=== PATIENT | male | born 1980 | race Caucasian/White ===

== ENCOUNTER 2019-10-25 10:39 | Emergency (ER) | payer OTHER ==
[~2019-10-25] VITALS: Ht 177.8 cm; Wt 102.1 kg
--- OUTSIDE RECORDS SUMMARY | ~2019-10-25 | XMS | Encounter Summary ---
Demographics + + + | Address | [address] | | | [place] [address] | + + + | Home Phone | | + + + | Preferred Language | Unknown | + + + | Marital Status | Single | + + + | Episcopalian Affiliation | Unknown | + + + | Race | Unknown | + + + | Ethnic Group | Unknown | + + + Author + + + | Author | [facility] | | | and [place] | + + + | Organization | [facility] | | | and [place] | + + + | Address | Unknown | + + + | Phone | Unavailable | + + + Support + + + + + | Name | Relationship | Address | Phone | + + + + + | Prudencio Hylton | STELLA | [address] | | | | | [place], [place] | | | | | [address] | | + + + + + | Bonnie Hylton | ECON | [address] | | | | | [place], [place] | | | | | [address] | | + + + + + Care Team Providers + +------+ + | Care Independent Contractor Name | Role | Phone | + +------+ + PCP | Unavailable | + +------+ + Encounter Details +--------+ + + + + | Date | Type | Department | Care Team | Description | +--------+ + + + + | 01/18/ | Hospital | [facility] | Carissa Cruz | | | 2012 | Encounter | MED CTR EMERGENCY | DO Toni Rubio | | | | | MCDANIEL [address] | [place], [place] | | | | | [place] | [address] | | | | | [address] | | | | | | [phone] | | | +--------+ + + + + Social History + +-------+ +--------+------+ | Tobacco Use | Types | Packs/Day | Years | Date | | | | | Used | | + +-------+ +--------+------+ | Never Assessed | | | | | + +-------+ +--------+------+ + + + | Sex Assigned at | Date Recorded | | | | + + + | Not on file | | + + + + + + + | Job Start Date | Occupation | Industry | + + + + | Not on file | Not on file | Not on file | + + + + + + + + | Travel History | Travel Start | Travel End | + + + + + + | No recent travel history available. | + + documented as of this encounter Plan of Treatment Not on filedocumented as of this encounter Procedures + +--------+ + + + | Procedure Name | Priori | Date/Time | Associated Diagnosis | Comments | | | ty | | | | + +--------+ + + + | XR LUMBAR SPINE 2 OR | Routin | 01/19/2013 | | Results for this | | 3 VW | e | 9:40 AM | | procedure are in the | | | | PDT | | results section. | + +--------+ + + + documented in this encounter Results XR Lumbar Spine 2 or 3 Vw (01/19/2013 9:40 AM PDT) + + | Specimen | + + | | + + + + + | Narrative | Performed At | + + + | [facility] | [place] | | Department [address] | [facility] | | [ rep ct street1+2] [ rep ct [facility] | | st zip] Signed | - IMAGING | | | | | Patient Name: CATHLEEN HYLTON Physician: | | | LIAN. : 1980 Age: 32 Sex: M Unit #: [id number] | | | Exam Date: 01/18/13 Location: ER | | | Report #: [id number] Page: | | | %(RAD)RES..mtdd.print.filter("pg") of %(RAD) | | | RES..mtdd.print.filter("tpg") | | | | | | Accession Number: [id number] | | | LUMBAR SPINE CLINICAL HISTORY: LOW BACK PAIN. | | | FINDINGS: AP, lateral, and coned-down views of the lumbar | | | spine show 5 lumbar segments. Alignment is normally maintained. | | | Vertebral body heights are normal. Disk interspaces also appear | | | normal. No bony degenerative changes are seen. Adjacent soft | | | tissues are normal. IMPRESSION: 1. NEGATIVE | | | STUDY OF THE LUMBAR SPINE. Dictated Date/Time: | | | 01/19/2013 09:40 Transcribed Date/Time: 01/19/2013 09:44 | | | Patient Service Associate: <<Signature on File>> | | | | | | Pranay Tran MD01/19/13 1320 <Electronically signed by | | | Pranay Tran MD> Pranay Tran MD 01/19/13 | | | 0940 Patient Service Associate: Tipjoy Jqpjmdpmcqojg09/26/13 0944 | | | | | + + + + + + + + | Performing | Address | City/State/Zipcode | Phone Number | | Organization | | | | + + + + + | [facility] | [address] | [place] | [phone] | | [facility] | | [address] | | | - IMAGING | | | | + + + + + documented in this encounter Visit Diagnoses Not on filedocumented in this encounter
--- OUTSIDE RECORDS SUMMARY | ~2019-10-25 | XMS | Encounter Summary ---
Demographics + + + | Address | [address] | | | [place] [address] | + + + | Home Phone | | + + + | Preferred Language | Unknown | + + + | Marital Status | Single | + + + | Presybeterian Affiliation | Unknown | + + + | Race | Unknown | + + + | Ethnic Group | Unknown | + + + Author + + + | Author | [facility] | | | and [place] | + + + | Organization | [facility] | | | and [place] | + + + | Address | Unknown | + + + | Phone | Unavailable | + + + Support + + + + + | Name | Relationship | Address | Phone | + + + + + | Prudencio Raygoza | STELLA | [address] | | | | | [place], [place] | | | | | [address] | | + + + + + | Bonnie Raygoza | ECON | [address] | | | | | [place], [place] | | | | | [address] | | + + + + + Care Team Providers + +------+ + | Care General Lithographic Worker Name | Role | Phone | + +------+ + PCP | Unavailable | + +------+ + Encounter Details +--------+ + + + + | Date | Type | Department | Care Team | Description | +--------+ + + + + | 10/25/ | Hospital | [facility] | Doyle Kamara, | | | 2002 | Encounter | MED CTR LABORATORY | MD [address] | | | | | [address] [place] | [place], [place] | | | | | [place], [place] | [address] | | | | | [address] | | | | | | [phone] | | | +--------+ + + + [...] Not on filedocumented as of this encounter Visit Diagnoses Not on filedocumented in this encounter"
--- OUTSIDE RECORDS SUMMARY | ~2019-10-25 | XMS | Clinical Summary ---
Demographics + + + | Address | [address] | | | [place] [address] | + + + | Home Phone | | + + + | Preferred Language | Unknown | + + + | Marital Status | Single | + + + | Baptism Affiliation | Unknown | + + + [...] [place], [place] | | | | | [address] | | + + + + + | Bonnie Raygoza | ECON | [address] | | | | | [place], [place] | | | | | [address] | | + + + + + Care Team Providers + +------+ + | Care Advertisement Distributor Name | Role | Phone | + [...] Vaccine: Influenza | | | | | (#1) | 9 | | | + + + + [...] +--------+-------+---------+--------+ | [employer] | [facility] | [id number] | 12/26/19 | | | Indemn | [...] | | al/Fam | | 1980 | [phone] | [place] | | | theresa | | | 4 (Home) | [address] | | | | | | [phone] | | | | | | | 2 (Work) | | + +--------+ +--------+ + + Advance Directives + + + + + | Type | Date Recorded | Patient | Explanation | | | | Dyer And Washer | | + + + + + | Power of | | | | | Agricultural Research Technician | | | | + + + + + | Advance | | | | | Directive | | | | + + + + +
--- OUTSIDE RECORDS SUMMARY | ~2019-10-25 | XMS | Encounter Summary ---
Demographics + + + | Address | [address] | | | [place] [address] | + + + | Home Phone | | + + + | Preferred Language | Unknown | + + + | Marital Status | Single | + + + | Gnosticism Affiliation | Unknown | + + + | Race | Unknown | + + + | Ethnic Group | Unknown | + + + Author + + + | Author | [facility] | | | and [place] | + + + | Organization | [facility] | | | [...] [place], [place] | | | | | [address] | | + + + + + | Bonnie Raygoza | ECON | [address] | | | | | [place], [place] | | | | | [address] | | + + + + + Care Team Providers + +------+ + | Care Director Of Convention Services Name | Role | Phone | + +------+ + PCP | Unavailable | + +------+ + Encounter Details +--------+ + + + + | Date | Type | Department | Care Team | Description | +--------+ + + + + | 10/25/ | Hospital | [facility] | Doyle Kamara, | | | 2002 | Encounter | MED CTR LABORATORY | MD [address] | | | | | [address] [place] | [place], [place] | | | | | [place], [place] | [address] | | | | | [address] | | | | | | [phone] | | | +--------+ + + + [...]
--- OUTSIDE RECORDS SUMMARY | ~2019-10-25 | XMS | Encounter Summary ---
Demographics + + + | Address | [address] | | | [place] [address] | + + + | Home Phone | | + + + | Preferred Language | Unknown | + + + | Marital Status | Single | + + + | Confucianist Affiliation | Unknown | + + + | Race | Unknown | + + + | Ethnic Group | Unknown | + + + Author + + + | Author | [facility] | | | and [place] | + + + | Organization | [facility] | | | and [...] [place], [place] | | | | | [address] | | + + + + + | Bonnie Hylton | ECON | [address] | | | | | [place], [place] | | | | | [address] | | + + + + + Care Team Providers + +------+ + | Care Sugar Trucker Name | Role | Phone | + +------+ + PCP | Unavailable | + +------+ + Encounter Details +--------+ + + + + | Date | Type | Department | Care Team | Description | +--------+ + + + + | 01/18/ | Hospital | [facility] | Carissa Cruz | | | 2012 | Encounter | MED CTR EMERGENCY | DO Toni Rubio | | | | | [place] [address] | [place], [place] | | | | | [place] | [address] | | | | | [address] | | | | | | [phone] | | | +--------+ + + + [...] Performed At | + + + | [facility] | [place] | | Department [address] | [facility] | | [ rep ct street1+2] [ rep ct [facility] | | st zip] Signed | - IMAGING | | | | | Patient Name: CATHLEEN HYLTON Physician: | | | LIAN. : 1980 Age: 32 Sex: M Unit #: [id number] | | | Exam Date: 01/18/13 Location: ER | | | Report #: [id number] Page: | | | %(RAD)RES..mtdd.print.filter("pg") of %(RAD) | | | RES..mtdd.print.filter("tpg") | | | | | | Accession Number: [id number] | | | LUMBAR SPINE CLINICAL HISTORY: [...] Transcribed Date/Time: 01/19/2013 09:44 | | | Protective Services Officer: <<Signature on File>> | | | | | | Pranay Tran MD01/19/13 1320 <Electronically signed by | | | Pranay Tran MD> Pranay Tran MD 01/19/13 | | | 0940 Protective Services Officer: [employer] Oeopjmoramndd67/26/13 0944 | | | | | + + + + + + + + | Performing | Address | City/State/Zipcode | Phone Number | | Organization | | | | + + + + + | [facility] | [address] | [place] | [phone] | | [facility] | | [address] | | | - IMAGING | | | | + + + + + documented in this encounter Visit Diagnoses Not on filedocumented in this encounter
--- OUTSIDE RECORDS SUMMARY | ~2019-10-25 | XMS | Encounter Summary ---
Demographics + + + | Address | [address] | | | [place] [address] | + + + | Home Phone | | + + + | Preferred Language | Unknown | + + + | Marital Status | Single | + + + | Gnosticist Affiliation | Unknown | + + + | Race | Unknown | + + + | Ethnic Group | Unknown | + + + Author + + + | Author | [facility] | | | and [place] | + + + | Organization | [facility] | | | and [...] [place], [place] | | | | | [address] | | + + + + + | Bonnie Hylton | ECON | [address] | | | | | [place], [place] | | | | | [address] | | + + + + + Care Team Providers + +------+ + | Care African History Professor Name | Role | Phone | + +------+ + | Prudencio Morocho MD | PCP | | + +------+ + Encounter Details +--------+ + + + + | Date | Type | Department | Care Team | Description | +--------+ + + + + | 07/13/ | Hospital | [facility] | Alisa Ramirez | | | 2012 | Encounter | MED CTR EMERGENCY | Dontrell Paul MD [address] | | | | | CENTER [address] | [facility] | | | | | [place], [place] | [place] [address] | | | | | [address] | [phone] | | | | | [phone] | | | +--------+ + + + [...] Performed At | + + + | [facility] | [place] | | Department [address] [facility], [place] | [facility] | | [ rep ct street1+2] [ rep ct [facility] | | st zip] Signed | - IMAGING | | | | | Patient Name: CATHLEEN HYLTON Physician: | | | SCHR.01 : 1980 Age: 32 Sex: M Unit #: [id number] | | | Exam Date: 07/13/13 Location: ER | | | Report #: [id number] Page: | | | %(RAD)RES..mtdd.print.filter("pg") of %(RAD) | | | RES..mtdd.print.filter("tpg") | | | | | | Accession Number: [id number] | | | CT SCAN OF THE [...] | | PRELIMINARY REPORT WAS SENT BY [employer] AT 7:03 PM ON | | | 07/13/2013. Dictated Date/Time: 07/14/2013 08:10 | | | Transcribed Date/Time: 07/14/2013 08:17 Container Maker: | | | DO <<Signature on File>> | | | Jose | | | MD Blue07/14/13 1034 <Electronically signed by Jose Mcarthur MD> | | | Jose Mcarthur MD 07/14/13809 Container Maker: [employer] | | | Addkjchnnzrrq08/18/13816 Alisa Ramirez MD | | | | | + + + + + + + + | Performing | Address | City/State/Zipcode | Phone Number | | Organization | | | | + + + + + | [facility] | [address] | [place] | [phone] | | [facility] | | [address] | | | - IMAGING | | | | + + + + + documented in this encounter Visit Diagnoses Not on filedocumented in this encounter
--- OUTSIDE RECORDS SUMMARY | ~2019-10-25 | XMS | Encounter Summary ---
Demographics + + + | Address | [address] | | | [place] [address] | + + + | Home Phone | | + + + | Preferred Language | Unknown | + + + | Marital Status | Single | + + + | Congregation Affiliation | Unknown | + + + | Race | Unknown | + + + | Ethnic Group | Unknown | + + + Author + + + | Author | [facility] | | | and [place] | + + + | Organization | [facility] | | | [...] [place], [place] | | | | | [address] | | + + + + + | Bonnie Hylton | ECON | [address] | | | | | [place], [place] | | | | | [address] | | + + + + + Care Team Providers + +------+ + | Care Bee Raiser Name | Role | Phone | + +------+ + | Prudencio Morocho MD | PCP | | + +------+ + Encounter Details +--------+ + + + + | Date | Type | Department | Care Team | Description | +--------+ + + + + | 07/13/ | Hospital | [facility] | Alisa Ramirez | | | 2012 | Encounter | MED CTR EMERGENCY | Dontrell Paul MD [address]34 | | | | | CENTER [address] | [facility] | | | | | [place], [place] | [place] [address] | | | | | [address] | [phone] | | | | | [phone] | | | +--------+ + + + [...] Performed At | + + + | [facility] | [place] | | Department [address] [facility] [address] [place] | [facility] | | [ rep ct street1+2] [ rep ct [facility] | | st zip] Signed | - IMAGING | | | | | Patient Name: CATHLEEN HYLTON Physician: | | | SCHR.01 : 1980 Age: 32 Sex: M Unit #: [id number] | | | Exam Date: 07/13/13 Location: ER | | | Report #: [id number] Page: | | | %(RAD)RES..mtdd.print.filter("pg") of %(RAD) | | | RES..mtdd.print.filter("tpg") | | | | | | Accession Number: [id number] | | | CT SCAN OF THE [...] | | PRELIMINARY REPORT WAS SENT BY [employer] AT 7:03 PM ON | | | 07/13/2013. Dictated Date/Time: 07/14/2013 08:10 | | | Transcribed Date/Time: 07/14/2013 08:17 Materials Planning Manager: | | | DO <<Signature on File>> | | | Jose | | | MD Blue07/14/13 1034 <Electronically signed by Jose Mcarthur MD> | | | Jose Mcarthur MD 07/14/13809 Materials Planning Manager: [employer] | | | Mjvclbafwpwvm21/18/13816 Alisa Ramirez MD | | | | | + + + + + + + + | Performing | Address | City/State/Zipcode | Phone Number | | Organization | | | | + + + + + | [facility] | [address] | [place] | [phone] | | [facility] | | [address] | | | - IMAGING | | | | + + + + + documented in this encounter Visit Diagnoses Not on filedocumented in this encounter
--- OUTSIDE RECORDS SUMMARY | ~2019-10-25 | XMS | Encounter Summary ---
Demographics + + + | Address | [address] | | | [place] [address] | + + + | Home Phone | | + + + | Preferred Language | Unknown | + + + | Marital Status | Single | + + + | Mandaen Affiliation | Unknown | + + + | Race | Unknown | + + + | Ethnic Group | Unknown | + + + Author + + + | Author | [facility] | | | and [place] | + + + | Organization | [facility] | | | [...] [place], [place] | | | | | [address] | | + + + + + | Bonnie Raygoza | ECON | [address] | | | | | [place], [place] | | | | | [address] | | + + + + + Care Team Providers + +------+ + | Care Continuous Process Tanner Rotary Drum Name | Role | Phone | + [...] + + | 04/10/ | Emergency | [facility] | Yefri Rizzo | Abdominal pain, | | 2013 | | MED CTR EMERGENCY | MD Dario [address] | lower, right | | | | CENTER [address] | [address] [facility] | (Primary Dx) | | | | [place], [place] | [place] [address] | | | | | [address] | [phone] | | | | | [phone] | | | +--------+ + + + [...] through Care Everywhere.ABDOMINAL PAIN, POSSIBLE APPENDICITIS [MALE] (ETHIOPIAN)ABDOMINAL PAIN (ETHIOPIAN)documented in this encounter Medications at Time of [...] | + + + + + | [facility] | [address] | [place] | [phone] | | [facility] | | [address] | | | - LABORATORY | | | | + + + + + | [facility] | [address] | [place] | | | [facility] | | [address] | | | - LABORATORY | | [...] ER staff by the | | | [facility] radiologist on April 10, 2014 at [...] the ER staff by the | | [facility]iologist on April 10, 2014 at 0405 hours.Dictated [...] reported to the ER staff by the [facility] | |radiologist on April 10, 2014 at 0405 hours. | | | |Dictated and Signed by: Anam Ruiz MD | | Electronically signed: 04/10/2014 10:30 AM | + + + +---------+ + + | Performing | Address | City/State/Zipcode | Phone Number | | Organization | | | | + +---------+ + + | [facility] | | | [phone] | + +---------+ + + | [facility] | | | [phone] | + +---------+ + + Lipase (04/10/2014 [...] + | [facility] | [address] | [place], [place] | [phone] | | [facility] | | [address] | | | - LABORATORY | | | | + + + + + | [facility] | [address] | [place], [place] | | | [facility] | | [address] | | | - LABORATORY | | [...] 10 | 7 - 18 mg/dL | [place] | | | | | | [facility] | | | | | | MEDICAL | | | | | | CENTER - | | | | | | LABORATORY | | + + + + + + | Creatinine | 0.83 | 0.60 - 1.30 | [place] | | | | | mg/dL | [facility] | | | | | | MEDICAL | | | | | | CENTER - | | | | | | LABORATORY | | + + + + + + | eGFR if not | >60Comment: GLOMERULAR | >=60 | [place] | | | | FILTRATION | mL/min/1.73m2 | [facility] | | | CHADIAN | RATE,ESTIMATED | | MEDICAL | | | | mL/min/1.36a0Ebuw than | | CENTER - | | [...] + | [facility] | [address] | [place] | [phone] | | [facility] | | [address] | | | - LABORATORY | | | | + + + + + | [facility] | [address] | [place], [place] | | | [facility] | | [address] | | | - LABORATORY | | [...] + | [facility] | [address] | [place] | [phone] | | [facility] | | [address] | | | - LABORATORY | | | | + + + + + | [facility] | [address] | [place], [place] | | | [facility] | | [address] | | | - LABORATORY | | [...] | 1.025 | | | | | [place], | | | | | | UA, [...] + + + + + + | Ictotest | | Negative | | | + + + + [...] | | | | | Intravenous, ONCE, 04/10/14 at | | AM PDT | [...]
--- OUTSIDE RECORDS SUMMARY | ~2019-10-25 | XMS | Encounter Summary ---
Demographics + + + | Address | [address] | | | [place] [address] | + + + | Home Phone | | + + + | Preferred Language | Unknown | + + + | Marital Status | Single | + + + | Yarsani Affiliation | Unknown | + + + | Race | Unknown | + + + | Ethnic Group | Unknown | + + + Author + + + | Author | [facility] | | | and [place] | + + + | Organization | [facility] | | | [...] [place], [place] | | | | | [address] | | + + + + + | Bonnie Raygoza | ECON | [address] | | | | | [place], [place] | | | | | [address] | | + + + + + Care Team Providers + +------+ + | Care Sole Painter Name | Role | Phone | + [...] + + | 04/10/ | Emergency | [facility] | Yefri Rizzo | Abdominal pain, | | 2013 | | MED CTR EMERGENCY | MD [address] | lower, right | | | | CENTER [address] | [address] [facility] | (Primary Dx) | | | | [place], [place] | [place] [address] | | | | | [address] | [phone] | | | | | [phone] | | | +--------+ + + + [...] through Care Everywhere.ABDOMINAL PAIN, POSSIBLE APPENDICITIS [MALE] (GEORGIAN)ABDOMINAL PAIN (GEORGIAN)documented in this encounter Medications at Time of [...] + | [facility] | [address] | [place] | [phone] | | [facility] | | [address] | | | - LABORATORY | | | | + + + + + | [facility] | [address] | [place] | | | [facility] | | [address] | | | - LABORATORY | | [...] ER staff by the | | | [facility] radiologist on April 10, 2014 at 0405 [...] reported to the ER staff by the [facility] | |radiologist on April 10, 2014 at 0405 hours. | | | |Dictated and Signed by: Anam Ruiz MD | | Electronically signed: 04/10/2014 10:30 AM | + + + +---------+ + + | Performing | Address | City/State/Zipcode | Phone Number | | Organization | | | | + +---------+ + + | [facility] | | | [phone] | + +---------+ + + | [facility] | | | [phone] | + +---------+ + + Lipase (04/10/2014 [...] + | [facility] | [address] | [place], [place] | [phone] | | [facility] | | [address] | | | - LABORATORY | | | | + + + + + | [facility] | [address] | [place], [place] | | | [facility] | | [address] | | | - LABORATORY | | [...] 10 | 7 - 18 mg/dL | [place] | | | | | | [facility] | | | | | | MEDICAL | | | | | | CENTER - | | | | | | LABORATORY | | + + + + + + | Creatinine | 0.83 | 0.60 - 1.30 | [place] | | | | | mg/dL | [facility] | | | | | | MEDICAL | | | | | | CENTER - | | | | | | LABORATORY | | + + + + + + | eGFR if not | >60Comment: GLOMERULAR | >=60 | [place] | | | | FILTRATION | mL/min/1.73m2 | [facility] | | | [place] | RATE,ESTIMATED | | MEDICAL | | | | mL/min/1.77d9Voia than | | CENTER - | | [...] + | [facility] | [address] | [place] | [phone] | | [facility] | | [address] | | | - LABORATORY | | | | + + + + + | [facility] | [address] | [place], [place] | | | [facility] | | [address] | | | - LABORATORY | | [...] + | [facility] | [address] | [place] | [phone] | | [facility] | | [address] | | | - LABORATORY | | | | + + + + + | [facility] | [address] | [place], [place] | | | [facility] | | [address] | | | - LABORATORY | | [...] | 1.025 | | | | | [place], | | | | | | UA, [...]
--- OUTSIDE RECORDS SUMMARY | ~2019-10-25 | XMS | Clinical Summary ---
Demographics + + + | Address | [address] | | | [place] [address] | + + + | Home Phone | | + + + | Preferred Language | Unknown | + + + | Marital Status | Single | + + + | Judaism Affiliation | Unknown | + + + | Race | Unknown | + + + | Ethnic Group | Unknown | + + + Author + + + | Author | [facility] | | | and [place] | + + + | Organization | [facility] | | | and [...] [place], [place] | | | | | [address] | | + + + + + | Bonnie Raygoza | ECON | [address] | | | | | [place], [place] | | | | | [address] | | + + + + + Care Team Providers + +------+ + | Care Cuff Slitter Name | Role | Phone | + [...] +--------+-------+---------+--------+ | [employer] | [employer] | [id number] | 12/26/19 | | | Indemn | [...] | | al/Fam | | 1980 | [phone] | [place] | | | [place] | | | 4 (Home) | [address] | | | | | | [phone] | | | | | | | 2 (Work) | | + +--------+ +--------+ + + Advance Directives + + + + + | Type | Date Recorded | Patient | Explanation | | | | Surgical Product Sales Consultant | | + + + + + | Power of | | | | | Watch Dial Stoner | | | | + + + + + | Advance | | | | | Directive | | | | + + + + +
[~2019-10-25 10:39] MED LIST: IMITREX5 MG NAS
[2019-10-25] MEDS ORDERED: IMITREX50 MG PO (12:13)
[2019-10-25] MEDS ORDERED: REGLAN10 MG PO (12:13)
[2019-10-25] MEDS ORDERED: ONDANSETRON ODT8 MG PO (12:13)
== END 2019-10-25 12:07 | disposition home or self-care (01) ==
LOC: ED 10:39
DX: G43.909 Migraine, unspecified, not intractable, without status migrainosus (principal); G47.30 Sleep apnea, unspecified; Z99.89 Dependence on other enabling machines and devices; Z87.891 Personal history of nicotine dependence; Z88.5 Allergy status to narcotic agent
CPT/HCPCS: 96372; 99283; J3030

== ENCOUNTER 2020-03-29 10:32 | Emergency (ER) | payer OTHER ==
[~2020-03-29] VITALS: Ht 177.8 cm; Wt 95.2 kg
--- OUTSIDE RECORDS SUMMARY | ~2020-03-29 | XMS | Encounter Summary ---
Demographics + + + | Address | [address] | | | [place] [address] | + + + | Home Phone | | + + + | Preferred Language | Unknown | + + + | Marital Status | Single | + + + | Catholic Affiliation | Unknown | + + + | Race | Unknown | + + + | Ethnic Group | Unknown | + + + Author + + + | Author | [facility] | | | and [place] | + + + | Organization | [facility] | | | and [...] [place], [place] | | | | | [address] | | + + + + + | Bonnie Hylton | ECON | [address] | | | | | [place], [place] | | | | | [address] | | + + + + + Care Team Providers + +------+ + | Care Hooker Off Name | Role | Phone | + +------+ + PCP | Unavailable | + +------+ + Encounter Details +--------+ + + + + | Date | Type | Department | Care Team | Description | +--------+ + + + + | 01/18/ | Hospital | [facility] | Carissa Cruz | | | 2012 | Encounter | MED CTR EMERGENCY | DO Toni Rubio | | | | | [place] [address] | [place], [place] | | | | | [place] | [address] | | | | | [address] | | | | | | [phone] | | | +--------+ + + + [...] Performed At | + + + | [facility] | [place] | | Department [address] | [facility] | | [ rep [address]] [ rep ct [facility] | | st zip] Signed | - IMAGING | | | | | Patient Name: CATHLEEN HYLTON Physician: | | | LIAN. : 1980 Age: 32 Sex: M Unit #: [id number] | | | Exam Date: 01/18/13 Location: ER | | | Report #: [id number] Page: | | | %(RAD)RES..mtdd.print.filter("pg") of %(RAD) | | | RES..mtdd.print.filter("tpg") | | | | | | Accession Number: [id number] | | | LUMBAR SPINE CLINICAL HISTORY: [...] Transcribed Date/Time: 01/19/2013 09:44 | | | Nuisance Animal Damage Control Agent: <<Signature on File>> | | | | | | Pranay Tran MD01/19/13 1320 <Electronically signed by | | | Pranay Tran MD> Pranay Tran MD 01/19/13 | | | 0940 Nuisance Animal Damage Control Agent: dax Asparna Wwkarbhlxagvh92/26/13 0944 | | | | | + + + + + + + + | Performing | Address | City/State/Zipcode | Phone Number | | Organization | | | | + + + + + | [facility] | [address] | [place] | [phone] | | [facility] | | [address] | | | - IMAGING | | | | + + + + + documented in this encounter Visit Diagnoses Not on filedocumented in this encounter
--- OUTSIDE RECORDS SUMMARY | ~2020-03-29 | XMS | Clinical Summary ---
Demographics + + + | Address | [address] | | | [place] [address] | + + + | Home Phone | | + + + | Preferred Language | Unknown | + + + | Marital Status | Single | + + + | Mormonism Affiliation | Unknown | + + + | Race | Unknown | + + + | Ethnic Group | Unknown | + + + Author + + + | Author | [facility] | | | and [place] | + + + | Organization | [facility] | | | and [place] | + + + | Address | Unknown | + + + | Phone | Unavailable | + + + Support + + + + + | Name | Relationship | Address | Phone | + + + + + | Prudencio Raygoza | STELLA | [address] | | | | | [place], [place] | | | | | [address] | | + + + + + | Bonnie Raygoza | ECON | [address] | | | | | [place], [place] | | | | | [address] | | + + + + + Care Team Providers + +------+ + | Care Rails Developer Name | Role | Phone | + +------+ + | Prudencio Morocho MD | PCP | | + +------+ + Allergies + + + + + + | Active Allergy | Reactions | Severity | Noted | Comments | | | | | Date | | + + + + + + | Oxycodone | Itching | | 04/10/20 | | | | | | 14 | | + + + + + + Medications + + + +---------+------+------+-------+ | Medication | Sig | Dispensed | Refills | Star | End | Statu | | | | | | t | Date | s | | | | | | Date | | | + + + +---------+------+------+-------+ | | Take 1 tablet by | | 0 | | | Activ | | amoxicillin-clavulan | mouth 2 times daily. | | | | | e | | ate (AUGMENTIN) | | | | | | | | 875-125 mg per | | | | | | | | tablet | | | | | | | + + + +---------+------+------+-------+ | | Take 1 tablet by | 15 | 0 | 06/1 | | Activ | | HYDROcodone-acetamin | mouth every 6 hours | tablet | | 5/20 | | e | | ophen (NORCO) 5-325 | as needed for Pain. | | | 14 | | | | mg per tablet | | | | | | | + + + +---------+------+------+-------+ Active Problems Not on file Social History + +-------+ +--------+------+ | Tobacco Use | Types | Packs/Day | Years | Date | | | | | Used | | + +-------+ +--------+------+ | Never Assessed | | | | | + +-------+ +--------+------+ + + +---------+ + | Alcohol Use | Drinks/Week | oz/Week | Comments | + + +---------+ + | Yes | 10 Cans of beer | 10.0 | | + + +---------+ + + + + | Sex Assigned at [...] recent travel history available. | + + Last Filed Vital Signs + + + + + | Vital Sign | Reading | Time Taken | Comments | + + + + + | Blood Pressure | 128/78 | 04/10/2014 7:14 AM | | | | | PDT | | + + + + + | Pulse | 62 | 04/10/2014 7:14 AM | | | | | PDT | | + + + + + | Temperature | 36.9 C (98.4 F) | 04/10/2014 7:14 AM | | | | | PDT | | + + + + + | Respiratory Rate | 14 | 04/10/2014 7:14 AM | | | | | PDT | | + + + + + | Oxygen Saturation | 97% | 04/10/2014 7:14 AM | | | | | PDT | | + + + + + | Inhaled Oxygen | - | - | | | Concentration | | | | + + + + + | Weight | 95.3 kg (210 lb) | 04/10/2014 1:45 AM | | | | | PDT | | + + + + + | Height | 177.8 cm (5' 10") | 04/10/2014 1:45 AM | | | | | PDT | | + + + + + | Body Mass Index | 30.13 | 04/10/2014 1:45 AM | | | | | PDT | | + + + + + Plan of Treatment + + + + + | Health Maintenance | Due Date | Last Done | Comments | + + + + + | Vaccine: | | | | | Dtap/Tdap/Td (1 - | 2 | | | | Tdap) | | | | + + + + + | Vaccine: Influenza | | | | | (Season Ended) | 0 | | | + + + + + Results Not on filefrom Last 3 Months Insurance + +--------+ +--------+-------+---------+--------+ | Payer | Benefi | Subscriber | Effect | Phone | Address | Type | | | t Plan | ID | kyra | | | | | | / | | Dates | | | | | | Group | | | | | | + +--------+ +--------+-------+---------+--------+ | [employer] | [employer] | [id number] | 12/26/19 | | | Indemn | | | NS | | 13-Pre | | | ity | | | [place] | | [place] | | | | | | [place] | | | | [place] | | | | | | + +--------+ +--------+-------+---------+--------+ + +--------+ +--------+ + + | Guarantor Name | Accoun | Relation to | Date | Phone | Billing Address | | | t Type | Patient | of | | | | | | | | | | + +--------+ +--------+ + + | Oneal Raygoza | Person | Self [birth year] | [address] | | | al/Fam | | 1980 | [phone] | [place] | | | [place] | | | 4 (Home) | [address] | | | | | | [phone] | | | | | | | 2 (Work) | | + +--------+ +--------+ + + Advance Directives + + + + + | Type | Date Recorded | Patient | Explanation | | | | Squash Centre Manager | | + + + + + | Power of | | | | | Systems Programmer Analyst | | | | + + + + + | Advance | | | | | Directive | | | | + + + + +
--- OUTSIDE RECORDS SUMMARY | ~2020-03-29 | XMS | Encounter Summary ---
Demographics + + + | Address | [address] | | | [place] [address] | + + + | Home Phone | | + + + | Preferred Language | Unknown | + + + | Marital Status | Single | + + + | Zoroastrian Affiliation | Unknown | + + + | Race | Unknown | + + + | Ethnic Group | Unknown | + + + Author + + + | Author | [facility] | | | and [place] | + + + | Organization | [facility] | | | and [...] [place], [place] | | | | | [address] | | + + + + + | Bonnie Raygoza | ECON | [address] | | | | | [place], [place] | | | | | [address] | | + + + + + Care Team Providers + +------+ + | Care Bolter Helper Name | Role | Phone | + +------+ + PCP | Unavailable | + +------+ + Encounter Details +--------+ + + + + | Date | Type | Department | Care Team | Description | +--------+ + + + + | 10/25/ | Hospital | [facility] | Doyle Kamara, | | | 2002 | Encounter | MED CTR LABORATORY | MD [address] | | | | | [address] [place] | [place], [place] | | | | | [place], [place] | [address] | | | | | [address] | | | | | | [phone] | | | +--------+ + + + [...]
--- OUTSIDE RECORDS SUMMARY | ~2020-03-29 | XMS | Encounter Summary ---
Demographics + + + | Address | [address] | | | [place] [address] | + + + | Home Phone | | + + + | Preferred Language | Unknown | + + + | Marital Status | Single | + + + | Religion Affiliation | Unknown | + + + | Race | Unknown | + + + | Ethnic Group | Unknown | + + + Author + + + | Author | [facility] | | | and [place] | + + + | Organization | [facility] | | | and [place] | + + + | Address | Unknown | + + + | Phone | Unavailable | + + + Support + + + + + | Name | Relationship | Address | Phone | + + + + + | Prudencio Hylton | STELLA | [address] | | | | | [place], [place] | | | | | [address] | | + + + + + | Bonnie Hylton | ECON | [address] | | | | | [place], [place] | | | | | [address] | | + + + + + Care Team Providers + +------+ + | Care Patrol Officer Name | Role | Phone | + +------+ + | Prudencio Morocho MD | PCP | | + +------+ + Encounter Details +--------+ + + + + | Date | Type | Department | Care Team | Description | +--------+ + + + + | 07/13/ | Hospital | [facility] | Alisa Ramirez | | | 2012 | Encounter | MED CTR EMERGENCY | MD [address] | | | | | CENTER [address] | [facility], | | | | | [place], [place] | [place] [address] | | | | | [address] | [phone] | | | | | [phone] | | | +--------+ + + + [...] | + +--------+ + + + | CT SINUS WO CONTRAST | Routin | 07/14/2013 | | Results for this | | LIMITED | e | 8:10 AM | | procedure are in the | | | | PDT | | results section. | + +--------+ + + + documented in this encounter Results CT Sinus WO Contrast Limited (07/14/2013 8:10 AM PDT) + + | Specimen | + + | | + + + + + | Narrative | Performed At | + + + | [facility] | [place] | | Department [address] [facility] [address] [place] | [facility] | | [ rep ct [address]] [ rep [facility] | | st zip] Signed | - IMAGING | | | | | Patient Name: CATHLEEN HYLTON Physician: | | | SCHR.01 : 1980 Age: 32 Sex: M Unit #: [id number] | | | Exam Date: 07/13/13 Location: ER | | | Report #: [id number] Page: | | | %(RAD)RES..mtdd.print.filter("pg") of %(RAD) | | | RES..mtdd.print.filter("tpg") | | | | | | Accession Number: [id number] | | | CT SCAN OF THE SINUSES CLINICAL HISTORY: LEFT MAXILLA | | | EROSION. COMPARISON: None. PROTOCOL: | | | Thin-section axial CT images of the paranasal sinuses with | | | reconstruction views. FINDINGS: Limited evaluation of | | | the brain demonstrates no acute findings. The right orbit is | | | normal. There is an old mildly displaced fracture of the left | | | lamina papyracea with herniation of a small amount of intraorbital | | | fat. There is a periapical abscess with erosion involving | | | the more anterior left maxillary molar that extends into the left | | | maxillary sinus floor. The floor of the left maxillary sinus has | | | nearly completely eroded with only thin strands of bone remaining. | | | Moderate mucosal thickening is observed of the left maxillary | | | sinus with a small anterior mucous retention cyst and a moderate-sized | | | posterior mucous retention cyst. There is a small mucous | | | retention cyst in the superior aspect of the right maxillary sinus. | | | Mild mucosal thickening is observed of the ethmoid sinuses. | | | Minimal mucosal thickening is present in the left frontal sinus | | | and the left sphenoid sinus. There has been previous partial | | | ethmoidectomies and antrectomies. The antrectomy sites are patent. | | | Visualized mastoids are clear. Visualized calvarium and skull | | | base structures are otherwise unremarkable. IMPRESSION: | | | 1. PERIAPICAL ABSCESS INVOLVING ANTERIOR LEFT MAXILLARY MOLAR | | | WITH EROSION OF THE LEFT MAXILLARY SINUS FLOOR. 2. | | | MODERATE LEFT MAXILLARY CHRONIC SINUSITIS, MILD CHRONIC SINUSITIS IN | | | OTHER REGIONS DESCRIBED ABOVE. 3. PREVIOUS | | | BILATERAL ANTRECTOMIES AND ETHMOIDECTOMIES. 4. OLD | | | MILDLY DISPLACED FRACTURE OF LEFT LAMINA PAPYRACEA WITH MILD | | | HERNIATION OF LEFT INTRAORBITAL FAT. COMMENT: A | | | PRELIMINARY REPORT WAS SENT BY [employer] AT 7:03 PM ON | | | 07/13/2013. Dictated Date/Time: 07/14/2013 08:10 | | | Transcribed Date/Time: 07/14/2013 08:17 Pulp Mill Operator: | | | DO <<Signature on File>> | | | Jose | | | MD Blue07/14/13 1034 <Electronically signed by Jose Mcarthur MD> | | | Jose Mcarthur MD 07/14/13809 Pulp Mill Operator: Tracy | | | [id number] Alisa Ramirez MD | | | | | + + + + + + + + | Performing | Address | City/State/Zipcode | Phone Number | | Organization | | | | + + + + + | [facility] | [address] | [place] | [phone] | | [facility] | | [address] | | | - IMAGING | | | | + + + + + documented in this encounter Visit Diagnoses Not on filedocumented in this encounter
--- OUTSIDE RECORDS SUMMARY | ~2020-03-29 | XMS | Encounter Summary ---
Demographics + + + | Address | [address] | | | [place] [address] | + + + | Home Phone | | + + + | Preferred Language | Unknown | + + + | Marital Status | Single | + + + | Confucianism Affiliation | Unknown | + + + | Race | Unknown | + + + | Ethnic Group | Unknown | + + + Author + + + | Author | [facility] | | | and [place] | + + + | Organization | [facility] | | | and [...] [place], [place] | | | | | [address] | | + + + + + | Bonnie Raygoza | ECON | [address] | | | | | [place], [place] | | | | | [address] | | + + + + + Care Team Providers + +------+ + | Care Veneer Manufacturer Name | Role | Phone | + +------+ + | Prudencio Morocho MD | PCP | | + +------+ + Reason for Visit + + + | Reason | Comments | + + + | Flank Pain | | + + + Encounter Details +--------+ + + + + | Date | Type | Department | Care Team | Description | +--------+ + + + + | 04/10/ | Emergency | [facility] | Yefri Rizzo | Abdominal pain, | | 2013 | | [facility] | MD Dario [address] | lower, right | | | | CENTER [address] | [address] [facility] | (Primary Dx) | | | | [place], [place] | [place] [address] | | | | | [address] | [phone] | | | | | [phone] | | | +--------+ + + + [...] + + documented as of this encounter Last Filed Vital Signs + + + [...] + + + documented in this encounter Discharge Instructions Instructions Darryl Sainz RN - 04/10/2014Return for worsening or severe abdominal pain, nausea, vomiting, fevers or any other worsening symptoms. Follow-up with your physic marilou or clinic for continued care. There is still a possibility of early appendicitis, so if you do not feel right within 12 h ours please return for recheck. AttachmentsThe following attachments cannot be sent through Care Everywhere.ABDOMINAL PAIN, POSSIBLE APPENDICITIS [MALE] (LIBYAN)ABDOMINAL PAIN (LIBYAN)documented in this encounter Medications at Time of Discharge + + + +---------+ + + | Medication | Sig | Dispensed | Refills | Start | End Date | | | | | | Date | | + + + +---------+ + + | | Take 1 tablet by | | 0 | | | | amoxicillin-clavulan | mouth 2 times daily. | | | | | | ate (AUGMENTIN) | | | | | | | 875-125 mg per | | | | | | | tablet | | | | | | + + + +---------+ + + | | Take 1 tablet by | 15 | 0 | 06/15/20 | | | HYDROcodone-acetamin | mouth every 6 hours | tablet | | 14 | | | ophen (NORCO) 5-325 | as needed for Pain. | | | | | | mg per tablet | | | | | | + + + +---------+ + + | ondansetron | Take 1 tablet by | 15 | 0 | 06/15/20 | | | (ZOFRAN ODT) 4 mg | mouth every 6 hours | tablet | | 14 | 4 | | disintegrating | as needed for Nausea | | | | | | tablet | for up to 7 days. | | | | | + + + +---------+ + + documented as of this encounter Plan of Treatment Not on filedocumented as of this encounter Procedures + +--------+ + + + | Procedure Name | Priori | Date/Time | Associated Diagnosis | Comments | | | ty | | | | + +--------+ + + + | CBC W/AUTO | STAT | 04/10/2014 | | Results for this | | DIFFERENTIAL | | 6:27 AM | | procedure are in the | | | | PDT | | results section. | + +--------+ + + + | CT ABDOMEN PELVIS W | STAT | 04/10/2014 | | Results for this | | CONTRAST | | 2:38 AM | | procedure are in the | | | | PDT | | results section. | + +--------+ + + + | CBC NO DIFFERENTIAL | STAT | 04/10/2014 | | Results for this | | | | 2:30 AM | | procedure are in the | | | | PDT | | results section. | + +--------+ + + + | LIPASE | STAT | 04/10/2014 | | Results for this | | | | 2:30 AM | | procedure are in the | | | | PDT | | results section. | + +--------+ + + + | COMPREHENSIVE | STAT | 04/10/2014 | | Results for this | | METABOLIC PANEL | | 2:30 AM | | procedure are in the | | | | PDT | | results section. | + +--------+ + + + | POCT URINALYSIS, | STAT | 04/10/2014 | | Results for this | | AUTO WITH CONF | | 2:00 AM | | procedure are in the | | | | PDT | | results section. | + +--------+ + + + documented in this encounter Results CBC w/ Auto Differential (04/10/2014 6:27 AM PDT) + +-------+ + + + | Component | Value | Ref Range | Performed | Pathologist | | | | | At | Signature | + +-------+ + + + | WBC | 7.8 | 4.0 - 11.0 K/uL | [facility] | | | | | [facility] | | | | | | [facility] | | | | [facility] - | | | | | | LABORATORY | | + +-------+ + + + | RBC | 4.74 | 4.30 - 5.70 | [facility] | | | | | M/uL | [facility] | | | | | | [facility] | | | | | | C[facility] - | | | | | | LABORATORY | | + +-------+ + + + | Hemoglobin | 14.4 | 13.5 - 18.0 | [facility] | | | | | g/dL | [facility] | | | | | | [facility] | | | | | | [facility] - | | | | | | LABORATORY | | + +-------+ + + + | Hematocrit | 41.0 | 40.0 - 51.0 % | [facility] | | | | | | [facility] | | | | | | [facility] | | | | | | [facility] - | | | | | | LABORATORY | | + +-------+ + + + | MCV | 86.3 | 83.0 - 101.0 fL | [facility] | | | | | | [facility] | | | | | | [facility] | | | | | | [facility] - | | | | | | LABORATORY | | + +-------+ + + + | MCH | 30.3 | 28.0 - 35.0 pg | [facility] | | | | | | [facility] | | | | | | [facility] | | | | | | [facility] - | | | | | | LABORATORY | | + +-------+ + + + | MCHC | 35.1 | 32.0 - 36.0 | [facility] | | | | | g/dL | [facility] | | | | | | [facility] | | | | | | CENTER - | | | | | | LABORATORY | | + +-------+ + + + | RDW-CV | 13.0 | <15.0 % | [facility] | | | | | | [facility] | | | | | | [facility] | | | | | | [facility] - | | | | | | LABORATORY | | + +-------+ + + + | Platelet | 220 | 140 - 440 K/uL | [facility] | | | Count | | | [facility] | | | | | | [facility] | | | | | | [facility] - | | | | | | LABORATORY | | + +-------+ + + + | MPV | 6.6 | fL | [facility] | | | | | | [facility] | | | | | | [facility] | | | | | | [facility] - | | | | | | LABORATORY | | + +-------+ + + + | % | 55.8 | 45.0 - 82.0 % | [facility] | | | Neutrophils | | | [facility] | | | | | | [facility] | | | | | | CENTER - | | | | | | LABORATORY | | + +-------+ + + + | % | 34.8 | 20.0 - 45.0 % | [facility] | | | Lymphocytes | | | [facility] | | | | | | [facility] | | | | | | [facility] - | | | | | | LABORATORY | | + +-------+ + + + | % Monocytes | 6.7 | 4.0 - 12.0 % | [facility] | | | | | | [facility] | | | | | | [facility] | | | | | | [facility] - | | | | | | LABORATORY | | + +-------+ + + + | % | 2.1 | 0.0 - 5.0 % | [facility] | | | Eosinophils | | | [facility] | | | | | | MEDICAL | | | | | | CENTER - | | | | | | LABORATORY | | + +-------+ + + + | % Basophils | 0.6 | 0.0 - 1.0 % | [facility] | | | | | | [facility] | | | | | | [facility] | | | | | | [facility] - | | | | | | LABORATORY | | + +-------+ + + + | Absolute | 4.30 | 1.80 - 8.50 | [facility] | | | Neutrophils | | K/uL | [facility] | | | | | | MED[facility] | | | | | | [facility] - | | | | | | LABORATORY | | + +-------+ + + + | Absolute | 2.70 | 0.60 - 3.20 | [facility] | | | Lymphocytes | | K/uL | [facility] | | | | | | [facility] | | | | | | CENTER - | | | | | | LABORATORY | | + +-------+ + + + | Absolute | 0.50 | 0.00 - 1.00 | [facility] | | | Monocytes | | K/uL | [facility] | | | | | | MED[facility] | | | | | | CENTER - | | | | | | LABORATORY | | + +-------+ + + + | Absolute | 0.20 | 0.00 - 0.40 | [facility] | | | Eosinophils | | K/uL | [facility] | | | | | | MEDICAL | | | | | | CENTER - | | | | | | LABORATORY | | + +-------+ + + + | Absolute | 0.00 | 0.00 - 0.10 | [facility] | | | Basophils | | K/uL | [facility] | | | | | | MEDICAL | | | | | | CENTER - | | | | | | LABORATORY | | + +-------+ + + + + + | Specimen | + + | Blood | + + + + + + + | Performing | Address | City/State/Zipcode | Phone Number | | Organization | | | | + + + + + | [facility] | [address] | [place] | [phone] | | [facility] | | [address] | | | - LABORATORY | | | | + + + + + | [facility] | [address] | [place], [place] | | | [facility] | | [id number] | | | - LABORATORY | | | | + + + + + CT Abdomen Pelvis w Contrast (04/10/2014 2:38 AM PDT) + + | Specimen | + + | | + + + + + | Narrative | Performed At | + + + | ENHANCED CT ABDOMEN AND PELVIS 04/10/2014 2:02 AM CLINICAL | MISCELANIOUS | | HISTORY: RIGHT FLANK PAIN COMPARISON: None available | LAB | | TECHNIQUE: Axial images are performed through the abdomen and pelvis | | | following the uneventful intravenous administration of 90 mL | | | Omnipaque 350 contrast. Coronal and sagittal reformations | | | are also performed. ABDOMEN FINDINGS: Mild bandlike opacities | | | in the imaged lung bases favor atelectasis. Imaged mediastinum is | | | unremarkable. Several tiny, round hypodensities scattered about the | | | liver measure up to 9 mm in the posterior, superior right hepatic | | | lobe on image 16 and 8 mm in the inferior right hepatic lobe on image | | | 33, and are difficult to further characterize on this single phase | | | exam. The gallbladder, spleen, pancreas and adrenal glands are | | | unremarkable. Solitary small, rounded low-attenuation cysts are | | | suggested in both kidneys, measuring up to 9 mm on the right. No | | | renal or ureteral calculus or hydronephrosis is evident. The | | | appendix appears borderline enlarged, measuring approximately 7 mm in | | | diameter, and demonstrates potential mild mucosal hyperemia. There | | | is trace periappendiceal stranding as well. Tiny but mildly | | | prominent right lower quadrant mesenteric lymph nodes are noted. | | | There is moderate right colonic stool retention, without suspicion | | | for bowel obstruction. The bowel is unremarkable elsewhere. No | | | free air or free or organized fluid is evident. There is a small, | | | fat-containing umbilical hernia. Bones and soft tissues are | | | unremarkable. PELVIS FINDINGS: The prostate, mostly decompressed | | | bladder and seminal vesicles are unremarkable. Small, | | | fat-containing bilateral inguinal hernias are present. No free air, | | | free or organized fluid, or pathologic lymph node enlargement is | | | evident. A rounded sclerotic focus in the right femoral head favors | | | a bone island. Bones and soft tissues are otherwise multiple. | | | IMPRESSION - 1. BORDERLINE ENLARGEMENT OF THE APPENDIX WITH | | | POTENTIAL MILD MUCOSAL HYPEREMIA AND SUBTLE ADJACENT STRANDING, | | | CONCERNING FOR EARLY APPENDICITIS. CLINICAL AND LABORATORY | | | CORRELATION ADVISED. 2. MODERATE RIGHT COLONIC STOOL RETENTION | | | WITHOUT SUSPICION FOR BOWEL OBSTRUCTION. 3. SMALL | | | FAT-CONTAINING UMBILICAL AND INGUINAL HERNIAS. 4. NUMEROUS TINY | | | HYPODENSITIES IN THE LIVER, POSSIBLY REFLECTING CYSTS BUT DIFFICULT | | | TO CHARACTERIZE ON THIS SINGLE PHASE EXAM. CONSIDER FOLLOW-UP | | | SONOGRAPHY AN INITIAL ATTEMPT AT FURTHER CHARACTERIZATION. | | | Preliminary results of this study were reported to the ER staff by the | | | [facility] radiologist on April 10, 2014 at 0405 hours. Dictated | | | and Signed by: Anam Ruiz MD Electronically signed: 04/10/2014 | | | 10:30 AM | | + + + + + | Procedure Note | + + | Garo, Rad Results In - 04/10/2014 10:[address] ABDOMEN AND PELVIS | | 04/10/2014 2:02 AM CLINICAL HISTORY: RIGHT FLANK PAIN COMPARISON: None available | | TECHNIQUE: Axial images are performed through the abdomen and pelvis followingthe | | uneventful intravenous administration of 90 mL Omnipaque 350 contrast. Coronal and | | sagittal reformations are also performed. ABDOMEN FINDINGS: Mild bandlike opacities in | | the imaged lung bases favoratelectasis. Imaged mediastinum is unremarkable. Several | | tiny, roundhypodensities scattered about the liver measure up to 9 mm in the | | posterior,superior right hepatic lobe on image 16 and 8 mm in the inferior right | | hepaticlobe on image 33, and are difficult to further characterize on this single | | phaseexam. The gallbladder, spleen, pancreas and adrenal glands are unremarkable. | | Solitary small, rounded low-attenuation cysts are suggested in both kidneys,measuring up | | to 9 mm on the right. No renal or ureteral calculus orhydronephrosis is evident.The | | appendix appears borderline enlarged, measuring approximately 7 mm indiameter, and | | demonstrates potential mild mucosal hyperemia. There is traceperiappendiceal stranding | | as well. Tiny but mildly prominent right lowerquadrant mesenteric lymph nodes are | | noted. There is moderate right colonicstool retention, without suspicion for bowel | | obstruction. The bowel isunremarkable elsewhere. No free air or free or organized | | fluid is evident. There is a small, fat-containing umbilical hernia. Bones and soft | | tissues areunremarkable. PELVIS FINDINGS: The prostate, mostly decompressed bladder and | | seminal vesiclesare unremarkable. Small, fat-containing bilateral inguinal hernias are | | present. No free air, free or organized fluid, or pathologic lymph node enlargement | | isevident. A rounded sclerotic focus in the right femoral head favors a boneisland. | | Bones and soft tissues are otherwise multiple. IMPRESSION - 1. BORDERLINE ENLARGEMENT | | OF THE APPENDIX WITH POTENTIAL MILD MUCOSAL HYPEREMIAAND SUBTLE ADJACENT STRANDING, | | CONCERNING FOR EARLY APPENDICITIS. CLINICAL ANDLABORATORY CORRELATION ADVISED.2. | | MODERATE RIGHT COLONIC STOOL RETENTION WITHOUT SUSPICION FOR BOWELOBSTRUCTION.3. SMALL | | FAT-CONTAINING UMBILICAL AND INGUINAL HERNIAS.4. NUMEROUS TINY HYPODENSITIES IN THE | | LIVER, POSSIBLY REFLECTING CYSTS BUTDIFFICULT TO CHARACTERIZE ON THIS SINGLE PHASE EXAM. | | CONSIDER FOLLOW-UPSONOGRAPHY AN INITIAL ATTEMPT AT FURTHER | | CHARACTERIZATION.Preliminary results of this study were reported to the ER staff by the | | [facility] on April 10, 2014 at 0405 hours.Dictated and Signed by: Anam Ruzi | | Electronically signed: 04/10/2014 10:30 AM | |evident. A rounded sclerotic focus in the right femoral head favors a bone | |island. Bones and soft tissues are otherwise multiple. | | | |IMPRESSION - | |1. BORDERLINE ENLARGEMENT OF THE APPENDIX WITH POTENTIAL MILD MUCOSAL HYPEREMIA | |AND SUBTLE ADJACENT STRANDING, CONCERNING FOR EARLY APPENDICITIS. CLINICAL AND | |LABORATORY CORRELATION ADVISED. | | | |2. MODERATE RIGHT COLONIC STOOL RETENTION WITHOUT SUSPICION FOR BOWEL | |OBSTRUCTION. | | | |3. SMALL FAT-CONTAINING UMBILICAL AND INGUINAL HERNIAS. | | | |4. NUMEROUS TINY HYPODENSITIES IN THE LIVER, POSSIBLY REFLECTING CYSTS BUT | |DIFFICULT TO CHARACTERIZE ON THIS SINGLE PHASE EXAM. CONSIDER FOLLOW-UP | |SONOGRAPHY AN INITIAL ATTEMPT AT FURTHER CHARACTERIZATION. | | | |Preliminary results of this study were reported to the ER staff by the [facility] | |radiologist on April 10, 2014 at 0405 hours. | | | |Dictated and Signed by: Anam Ruiz MD | | Electronically signed: 04/10/2014 10:30 AM | + + + +---------+ + + | Performing | Address | City/State/Zipcode | Phone Number | | Organization | | | | + +---------+ + + | [facility] | | | [phone] | + +---------+ + + | MISC[facility]ANI[facility] LAB | | | [phone] | + +---------+ + + Lipase (04/10/2014 2:30 AM PDT) + +-------+ + + + | Component | Value | Ref Range | Performed | Pathologist | | | | | At | Signature | + +-------+ + + + | Lipase | 24 | 0 - 60 U/L | [facility] | | | | | | [facility] | | | | | | MEDICAL | | | | | | CENTER - | | | | | | LABORATORY | | + +-------+ + + + + + | Specimen | + + | Blood | + + + + + + + | Performing | Address | City/State/Zipcode | Phone Number | | Organization | | | | + + + + + | [facility] | [address] | [place], [place] | [phone] | | [facility] | | [address] | | | - LABORATORY | | | | + + + + + | [facility] | [address] | [place], [place] | | | [facility] | | [phone], [facility] | | | - LABORATORY | | | | + + + + + Comprehensive Metabolic Panel (04/10/2014 2:30 AM PDT) + + + + + + | Component | Value | Ref Range | Performed | Pathologist | | | | | At | Signature | + + + + + + | Na | 134 (L) | 136 - 149 | [facility] | | | | | mmol/L | [facility] | | | | | | MEDICAL | | | | | | CENTER - | | | | | | LABORATORY | | + + + + + + | K | 3.3 (L) | 3.5 - 5.1 | [facility] | | | | | mmol/L | [facility] | | | | | | MEDICAL | | | | | | CENTER - | | | | | | LABORATORY | | + + + + + + | Cl | 102 | 98 - 109 mmol/L | [facility] | | | | | | [facility] | | | | | | MEDICAL | | | | | | CENTER - | | | | | | LABORATORY | | + + + + + + | CO2 | 22 (L) | 24 - 31 mmol/L | [facility] | | | | | | [facility] | | | | | | MEDICAL | | | | | | CENTER - | | | | | | LABORATORY | | + + + + + + | Anion Gap | 10 | 3 - 16 mmol/L | [facility] | | | | | | [facility] | | | | | | MEDICAL | | | | | | CENTER - | | | | | | LABORATORY | | + + + + + + | Glucose | 118 (H) | 70 - 109 mg/dL | [facility] | | | | | | [facility] | | | | | | MEDICAL | | | | | | CENTER - | | | | | | LABORATORY | | + + + + + + | BUN | 10 | 7 - 18 mg/dL | [facility] | | | | | | [facility] | | | | | | MEDICAL | | | | | | CENTER - | | | | | | LABORATORY | | + + + + + + | Creatinine | 0.83 | 0.60 - 1.30 | [facility] | | | | | mg/dL | [facility] | | | | | | MEDICAL | | | | | | CENTER - | | | | | | LABORATORY | | + + + + + + | eGFR if not | >60Comment: GLOMERULAR | >=60 | [facility] | | | | FILTRATION | mL/min/1.73m2 | [facility] | | | CAMEROONIAN | RATE,ESTIMATED | | MEDICAL | | | | mL/min/1.19v5Xqmb than | | CENTER - | | | | 60 Chronic kidney | | LABORATORY | | | | disease,if found over a | | | | | | 3-month period.Less than | | | | | | 15 Kidney failureFor | | | | | | | | | | | | Americans,multiply the | | | | | | calculated GFR by 1.21. | | | | | | | | | | + + + + + + | Calcium | 8.5 | 8.3 - 10.5 | [facility] | | | | | mg/dL | [facility] | | | | | | MEDICAL | | | | | | CENTER - | | | | | | LABORATORY | | + + + + + + | Albumin | 4.1 | 3.2 - 5.0 g/dL | [facility] | | | | | | [facility] | | | | | | MEDICAL | | | | | | CENTER - | | | | | | LABORATORY | | + + + + + + | Bilirubin | 0.5 | 0.1 - 1.5 mg/dL | [facility] | | | Total | | | [facility] | | | | | | MEDICAL | | | | | | CENTER - | | | | | | LABORATORY | | + + + + + + | Total | 6.8 | 6.0 - 7.8 g/dL | [facility] | | | Protein | | | [facility] | | | | | | MEDICAL | | | | | | CENTER - | | | | | | LABORATORY | | + + + + + + | AST | 27 | 10 - 42 U/L | [facility] | | | | | | [facility] | | | | | | MEDICAL | | | | | | CENTER - | | | | | | LABORATORY | | + + + + + + | ALT | 45 | 6 - 45 U/L | [facility] | | | | | | [facility] | | | | | | MEDICAL | | | | | | CENTER - | | | | | | LABORATORY | | + + + + + + | Alkaline | 54 | 40 - 110 U/L | [facility] | | | Phosphatase | | | [facility] | | | | | | MEDICAL | | | | | | CENTER - | | | | | | LABORATORY | | + + + + + + | Globulin | 2.7 | g/dL | [facility] | | | | | | [facility] | | | | | | MEDICAL | | | | | | CENTER - | | | | | | LABORATORY | | + + + + + + | Albumin/Martha | 1.5 | | [facility] | | | bulin Ratio | | | [facility] | | | | | | MEDICAL | | | | | | CENTER - | | | | | | LABORATORY | | + + + + + + | BUN/Creatin | 12.0 | | [facility] | | | ine Ratio | | | [facility] | | | | | | MEDICAL | | | | | | CENTER - | | | | | | LABORATORY | | + + + + + + + + | Specimen | + + | Blood | + + + + + + + | Performing | Address | City/State/Zipcode | Phone Number | | Organization | | | | + + + + + | [facility] | [address] | [place] | [phone] | | [facility] | | [address] | | | - LABORATORY | | | | + + + + + | [facility] | [address] | [place], [place] | | | [facility] | | [id number] | | | - LABORATORY | | | | + + + + + CBC no Differential (04/10/2014 2:30 AM PDT) + +-------+ + + + | Component | Value | Ref Range | Performed | Pathologist | | | | | At | Signature | + +-------+ + + + | WBC | 10.4 | 4.0 - 11.0 K/uL | [facility] | | | | | | [facility] | | | | | | MEDICAL | | | | | | CENTER - | | | | | | LABORATORY | | + +-------+ + + + | RBC | 4.98 | 4.30 - 5.70 | [facility] | | | | | M/uL | [facility] | | | | | | MEDICAL | | | | | | CENTER - | | | | | | LABORATORY | | + +-------+ + + + | Hemoglobin | 15.2 | 13.5 - 18.0 | [facility] | | | | | g/dL | [facility] | | | | | | MEDICAL | | | | | | CENTER - | | | | | | LABORATORY | | + +-------+ + + + | Hematocrit | 42.9 | 40.0 - 51.0 % | [facility] | | | | | | [facility] | | | | | | MEDICAL | | | | | | CENTER - | | | | | | LABORATORY | | + +-------+ + + + | MCV | 86.2 | 83.0 - 101.0 fL | [facility] | | | | | | [facility] | | | | | | MEDICAL | | | | | | CENTER - | | | | | | LABORATORY | | + +-------+ + + + | MCH | 30.5 | 28.0 - 35.0 pg | [facility] | | | | | | [facility] | | | | | | MEDICAL | | | | | | CENTER - | | | | | | LABORATORY | | + +-------+ + + + | MCHC | 35.3 | 32.0 - 36.0 | [facility] | | | | | g/dL | [facility] | | | | | | MEDICAL | | | | | | CENTER - | | | | | | LABORATORY | | + +-------+ + + + | RDW-CV | 13.1 | <15.0 % | [facility] | | | | | | [facility] | | | | | | MEDICAL | | | | | | CENTER - | | | | | | LABORATORY | | + +-------+ + + + | Platelet | 221 | 140 - 440 K/uL | [facility] | | | Count | | | [facility] | | | | | | MEDICAL | | | | | | CENTER - | | | | | | LABORATORY | | + +-------+ + + + | MPV | 6.9 | fL | [facility] | | | | | | [facility] | | | | | | MEDICAL | | | | | | CENTER - | | | | | | LABORATORY | | + +-------+ + + + + + | Specimen | + + | Blood | + + + + + + + | Performing | Address | City/State/Zipcode | Phone Number | | Organization | | | | + + + + + | [facility] | [address] | [place], [place] | [phone] | | [facility] | | [address] | | | - LABORATORY | | | | + + + + + | [facility] | [address] | [place], [place] | | | [facility] | | [phone], [facility] | | | - LABORATORY | | | | + + + + + POCT Urinalysis Dipstick Automated (04/10/2014 2:00 AM PDT) + + + + + + | Component | Value | Ref Range | Performed | Pathologist | | | | | At | Signature | + + + + + + | Color, UA, | Yellow | | | | | POC | | | | | + + + + + + | Clarity, | Clear | | | | | UA, POC | | | | | + + + + + + | Glucose, | Negative | | | | | UA, POC | | | | | + + + + + + | Bilirubin, | Negative | | | | | UA, POC | | | | | + + + + + + | Ketones, | Negative | Negative | | | | UA, POC | | | | | + + + + + + | Specific | 1.025 | | | | | [place], | | | | | | UA, POC | | | | | + + + + + + | Blood, UA, | Negative | | | | | POC | | | | | + + + + + + | pH, UA, POC | 5.5 | | | | + + + + + + | Protein, | Negative | | | | | UA, POC | | | | | + + + + + + | Urobilinoge | 0.2 E.U./dL | | | | | n, UA, POC | | | | | + + + + + + | Nitrite, | Negative | | | | | UA, POC | | | | | + + + + + + | Leukocyte | Negative | | | | | Esterase, | | | | | | UA, POC | | | | | + + + + + + | Reducing | | | | | | Substances, | | | | | | Urine | | | | | + + + + + + | Bilirubin | | Negative | | | | Confirmatio | | | | | | n by | | | | | | Ictotest, | | | | | | Urine | | | | | + + + + + + | Remark | | | | | + + + + + + + + | Specimen | + + | Urine specimen | | (specimen) | + + documented in this encounter Visit Diagnoses + + | Diagnosis | + + | Abdominal pain, lower, right - Primary | + + documented in this encounter Administered Medications + +--------+ +------+------+------+ | Medication Order | MAR | Action | Dose | Rate | Site | | | Action | Date | | | | + +--------+ +------+------+------+ | HYDROmorphone (DILAUDID) | Given | 04/10/20 | 1 mg | | | | injection 1 mg 1 mg, | | 14 6:24 | | | | | Intravenous, ONCE, Marci 04/10/14 at | | AM PDT | | | | | 0445, For 1 dose | | | | | | + +--------+ +------+------+------+ +---+---+ | | | +---+---+ + +-------+ +------+---+---+ | iohexol (OMNIPAQUE 350) 350 | Given | 04/10/20 | 1 mL | | | | mg/mL injection 1 mL 1 mL, | | 14 3:08 | | | | | Intravenous, ONCE PRN, Other, | | AM PDT | | | | | Starting 04/10/14 at 0230, For | | | | | | | 1 dose, [facility] | | | | | | + +-------+ +------+---+---+ +---+---+ | | | +---+---+ + +-------+ +------+---+---+ | ondansetron (ZOFRAN ODT) | Given | 04/10/20 | 4 mg | | | | disintegrating tablet 4 mg 4 mg, | | 14 6:30 | | | | | Oral, ONCE, 04/10/14 at 0230, | | AM PDT | | | | | For 1 dose | | | | | | + +-------+ +------+---+---+ +---+---+ | | | +---+---+ documented in this encounter
--- OUTSIDE RECORDS SUMMARY | ~2020-03-29 | XMS | Encounter Summary ---
Demographics + + + | Address | [address] | | | [place] [address] | + + + | Home Phone | | + + + | Preferred Language | Unknown | + + + | Marital Status | Single | + + + | Baptist Affiliation | Unknown | + + + | Race | Unknown | + + + | Ethnic Group | Unknown | + + + Author + + + | Author | [facility] | | | and [place]ana | + + + | Organization | [facility] | | | and [...] [place], [place] | | | | | [address] | | + + + + + | Bonnie Raygoza | ECON | [address] | | | | | [place], [place] | | | | | [address] | | + + + + + Care Team Providers + +------+ + | Care Nursery Nurse Name | Role | Phone | + +------+ + PCP | Unavailable | + +------+ + Encounter Details +--------+ + + + + | Date | Type | Department | Care Team | Description | +--------+ + + + + | 10/25/ | Hospital | [facility] | Doyle Kamara, | | | 2002 | Encounter | MED CTR LABORATORY | MD [address] | | | | | [address] [place] | [place], [place] | | | | | [place], [place] | [address] | | | | | [address] | | | | | | [phone] | | | +--------+ + + + [...]
--- OUTSIDE RECORDS SUMMARY | ~2020-03-29 | XMS | Clinical Summary ---
Demographics + + + | Address | [address] | | | [place] [address] | + + + | Home Phone | | + + + | Preferred Language | Unknown | + + + | Marital Status | Single | + + + | Sikhism Affiliation | Unknown | + + + | Race | Unknown | + + + | Ethnic Group | Unknown | + + + Author + + + | Author | [facility] | | | and [place] | + + + | Organization | [facility] | | | and [...] [place], [place] | | | | | [address] | | + + + + + | Bonnie Raygoza | ECON | [address] | | | | | [place], [place] | | | | | [address] | | + + + + + Care Team Providers + +------+ + | Care Postal Clerk Name | Role | Phone | + [...] +--------+-------+---------+--------+ | [employer] | [facility] | [id number] | 12/26/19 | | | Indemn | [...] | | al/Fam | | 1980 | [phone] | [place] | | | theresa | | | 4 (Home) | [address] | | | | | | [phone] | | | | | | | 2 (Work) | | + +--------+ +--------+ + + Advance Directives + + + + + | Type | Date Recorded | Patient | Explanation | | | | Concessionist | | + + + + + | Power of | | | | | Hollow Handle Knife Assembler | | | | + + + + + | Advance | | | | | Directive | | | | + + + + +
--- OUTSIDE RECORDS SUMMARY | ~2020-03-29 | XMS | Encounter Summary ---
Demographics + + + | Address | [address] | | | [place] [address] | + + + | Home Phone | | + + + | Preferred Language | Unknown | + + + | Marital Status | Single | + + + | Latter Day Affiliation | Unknown | + + + [...] [place], [place] | | | | | [address] | | + + + + + | Bonnie Hylton | ECON | [address] | | | | | [place], [place] | | | | | [address] | | + + + + + Care Team Providers + +------+ + | Care Feed House Supervisor Name | Role | Phone | + +------+ + | Prudencio Morocho MD | PCP | | + +------+ + Encounter Details +--------+ + + + + | Date | Type | Department | Care Team | Description | +--------+ + + + + | 07/13/ | Hospital | [facility] | Alisa Ramirez | | | 2012 | Encounter | MED CTR EMERGENCY | MD [address] | | | | | CENTER [address] | [facility], | | | | | [place], [place] | [place] [address] | | | | | [address] | [phone] | | | | | [phone] | | | +--------+ + + + [...] Performed At | + + + | [facility] Diagnostic Imaging | [place] | | Department [address] [facility] [place] | [facility] | | [ rep ct [address]] [ rep [facility] | | st zip] Signed | - IMAGING | | | | | Patient Name: CATHLEEN HYLTON Physician: | | | SCHR.01 : 1980 Age: 32 Sex: M Unit #: [id number] | | | Exam Date: 07/13/13 Location: ER | | | Report #: [id number] Page: | | | %(RAD)RES..mtdd.print.filter("pg") of %(RAD) | | | RES..mtdd.print.filter("tpg") | | | | | | Accession Number: [id number] | | | CT SCAN OF THE [...] | | PRELIMINARY REPORT WAS SENT BY [employer] AT 7:03 PM ON | | | 07/13/2013. Dictated Date/Time: 07/14/2013 08:10 | | | Transcribed Date/Time: 07/14/2013 08:17 Air Intercept Controller: | | | DO <<Signature on File>> | | | Jose | | | MD Blue07/14/13 1034 <Electronically signed by Jose Mcarthur MD> | | | Jose Mcarthur MD 07/14/13809 Air Intercept Controller: Tracy | | | [id number]/18/13816 Alisa Ramirez MD | | | | | + + + + + + + + | Performing | Address | City/State/Zipcode | Phone Number | | Organization | | | | + + + + + | [facility] | [address] | [place] | [phone] | | [facility] | | [address] | | | - IMAGING | | | | + + + + + documented in this encounter Visit Diagnoses Not on filedocumented in this encounter
--- OUTSIDE RECORDS SUMMARY | ~2020-03-29 | XMS | Encounter Summary ---
Demographics + + + | Address | [address] | | | [place] [address] | + + + | Home Phone | | + + + | Preferred Language | Unknown | + + + | Marital Status | Single | + + + | Oriental Orthodox Affiliation | Unknown | + + + | Race | Unknown | + + + | Ethnic Group | Unknown | + + + Author + + + | Author | [facility] | | | and [place] | + + + | Organization | [facility] | | [...] [place], [place] | | | | | [address] | | + + + + + | Bonnie Raygoza | ECON | [address] | | | | | [place], [place] | | | | | [address] | | + + + + + Care Team Providers + +------+ + | Care Weights And Measures Inspector Name | Role | Phone | + [...] + + | 04/10/ | Emergency | [facility] | Yefri Rizzo | Abdominal pain, | | 2013 | | MED CTR EMERGENCY | MD [address] | lower, right | | | | CENTER [address] | [address] [facility] | (Primary Dx) | | | | [place], [place] | [place] [address] | | | | | [address] | [phone] | | | | | [phone] | | | +--------+ + + + [...] through Care Everywhere.ABDOMINAL PAIN, POSSIBLE APPENDICITIS [MALE] (SWAZI)ABDOMINAL PAIN (SWAZI)documented in this encounter Medications at Time of [...] + | [facility] | [address] | [place] | [phone] | | [facility] | | [address] | | | - LABORATORY | | | | + + + + + | [facility] | [address] | [place], [place] | | | [facility] | | [address] | | | - LABORATORY | [...] ER staff by the | | | [facility] radiologist on April 10, 2014 at 0405 [...] at 0405 hours.Dictated and Signed by: Anam Ruiz | | Electronically signed: 04/10/2014 10:30 AM [...] reported to the ER staff by the [facility] | |radiologist on April 10, 2014 at 0405 hours. | | | |Dictated and Signed by: Anam Ruiz MD | | Electronically signed: 04/10/2014 10:30 AM | + + + +---------+ + + | Performing | Address | City/State/Zipcode | Phone Number | | Organization | | | | + +---------+ + + | [facility] | | | [phone] | + +---------+ + + | [facility] | | | [phone] | + +---------+ + + Lipase (04/10/2014 [...] + | [facility] | [address] | [place], [place] | [phone] | | [facility] | | [address] | | | - LABORATORY | | | | + + + + + | [facility] | [address] | [place], [place] | | | [facility] | | [address], [facility] | | | - LABORATORY | [...] 10 | 7 - 18 mg/dL | [facility] | | | | | | [facility] | | | | | | MEDICAL | | | | | | CENTER - | | | | | | LABORATORY | | + + + + + + | Creatinine | 0.83 | 0.60 - 1.30 | [facility] | | | | | mg/dL | [facility] | | | | | | MEDICAL | | | | | | CENTER - | | | | | | LABORATORY | | + + + + + + | eGFR if not | >60Comment: GLOMERULAR | >=60 | [facility] | | | | FILTRATION | mL/min/1.73m2 | [facility] | | | ICELANDIC | RATE,ESTIMATED | | MEDICAL | | | | mL/min/1.08r9Jowz than | | CENTER - | | [...] + | [facility] | [address] | [place] | [phone] | | [facility] | | [address] | | | - LABORATORY | | | | + + + + + | [facility] | [address] | [place], [place] | | | [facility] | | [address] | | | - LABORATORY | [...] + | [facility] | [address] | [place], [place] | [phone] | | [facility] | | [address] | | | - LABORATORY | | | | + + + + + | [facility] | [address] | [place], [place] | | | [facility] | | [address], [facility] | | | - LABORATORY | [...] | 1.025 | | | | | [place], | | | | | | [facility], [...]
--- OUTSIDE RECORDS SUMMARY | ~2020-03-29 | XMS | Encounter Summary ---
Demographics + + + | Address | [address] | | | [place] [address] | + + + | Home Phone | | + + + | Preferred Language | Unknown | + + + | Marital Status | Single | + + + | Confucianist Affiliation | Unknown | + + + | Race | Unknown | + + + | Ethnic Group | Unknown | + + + Author + + + | Author | [facility] | | | and [place] | + + + | Organization | [facility] | | | and [...] [place], [place] | | | | | [address] | | + + + + + | Bonnie Hylton | ECON | [address] | | | | | [place], [place] | | | | | [address] | | + + + + + Care Team Providers + +------+ + | Care Marketing Traffic Coordinator Name | Role | Phone | + +------+ + PCP | Unavailable | + +------+ + Encounter Details +--------+ + + + + | Date | Type | Department | Care Team | Description | +--------+ + + + + | 01/18/ | Hospital | [facility] | Carissa Cruz | | | 2012 | Encounter | MED CTR EMERGENCY | DO Toni Rubio | | | | | [place] [address] | [place], [place] | | | | | [place] | [address] | | | | | [address] | | | | | | [phone] | | | +--------+ + + + [...] Performed At | + + + | [facility] Diagnostic Imaging | [place] | | Department [address] | [facility] | | [ rep ct [address]] [ rep ct [facility] | | st zip] Signed | - IMAGING | | | | | Patient Name: CATHLEEN HYLTON Physician: | | | LIAN. : 1980 Age: 32 Sex: M Unit #: [id number] | | | Exam Date: 01/18/13 Location: ER | | | Report #: [id number] Page: | | | %(RAD)RES..mtdd.print.filter("pg") of %(RAD) | | | RES..mtdd.print.filter("tpg") | | | | | | Accession Number: [id number] | | | LUMBAR SPINE CLINICAL HISTORY: [...] Transcribed Date/Time: 01/19/2013 09:44 | | | Legal Administrative Secretary: <<Signature on File>> | | | | | | Pranay Tran MD01/19/13 1320 <Electronically signed by | | | Pranay Tran MD> Pranay Tran MD 01/19/13 | | | 0940 Legal Administrative Secretary: MEEP [id number]/26/13 0944 | | | | | + + + + + + + + | Performing | Address | City/State/Zipcode | Phone Number | | Organization | | | | + + + + + | [facility] | [address] | [place] | [phone] | | [facility] | | [address] | | | - IMAGING | | | | + + + + + documented in this encounter Visit Diagnoses Not on filedocumented in this encounter
[~2020-03-29 10:32] MED LIST changes: +IMITREX50 MG PO; +ONDANSETRON ODT8 MG PO; +REGLAN10 MG PO
== END 2020-03-29 11:31 | disposition home or self-care (01) ==
LOC: ED 10:32
PROC: 0HQ7XZZ Repair Abdomen Skin, External Approach (ICD-10-PCS; principal; 2020-03-29)
DX: S31.131A Puncture wound of abdominal wall without foreign body, left upper quadrant without penetration into peritoneal cavity, initial encounter (principal); G47.30 Sleep apnea, unspecified; Z99.89 Dependence on other enabling machines and devices; Z88.5 Allergy status to narcotic agent; W22.8XXA Striking against or struck by other objects, initial encounter
CPT/HCPCS: 12001; 99283-25

== ENCOUNTER 2020-12-09 16:31 | Emergency (ER) | payer OTHER ==
[~2020-12-09] VITALS: Ht 177.8 cm; Wt 96.6 kg
[2020-12-09] MEDS ORDERED: ERYTHROMYCIN1 GM OS (17:23)
== END 2020-12-09 17:32 | disposition home or self-care (01) ==
LOC: ED 16:31
DX: H10.89 Other conjunctivitis (principal)
CPT/HCPCS: 99283

== ENCOUNTER 2020-12-12 14:04 | Emergency (ER) | payer OTHER ==
[~2020-12-12] VITALS: Ht 177.8 cm; Wt 96.6 kg
[~2020-12-12 14:04] MED LIST changes: +ERYTHROMYCIN1 GM OS
--- OUTSIDE RECORDS SUMMARY | 2020-12-12 14:08 | XMS ---
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 Care History Medical/Surgical 11/15/2019 [facility] - Patient is currently established with [facility]. If patient is seen in the ED during business hours. Please contact CHWs at [facility]. Care Recommendation: If this patient has had 5 or more Emergency Department visits in the last 12 months.\T\nbsp; Patient will require education on the scope and purpose of the ED as an acute care provider not a Primary Care Provider and should not be utilized for chronic conditions.\T\nbsp; These are guidelines and the provider should exercise clinical judgment when providing care. E.D. VISIT COUNT (12 MO.) 3 [facility] TOTAL 3 NOTE: Visits indicate total known visits. ED/UCC VISIT TRACKING (12 MO.) 12/12/2020 14:06 [facility] [place] TYPE: Emergency COMPLAINT: - POSS BOTH EYE INFECTION 12/09/2020 16:32 [facility] [place] TYPE: Emergency COMPLAINT: - FOREIGN OBJECT L EYE 03/29/2020 10:32 [facility] [place] TYPE: Emergency COMPLAINT: - STOMACH LACERATION DIAGNOSES: - Allergy status to narcotic agent - Striking against or struck by other objects, initial encounter - Laceration of stomach, initial encounter - Puncture wound of abdominal wall without foreign body, left upper quadrant without penetration into peritoneal cavity, initial encounter - Dependence on other enabling machines and devices - Sleep apnea, unspecified INPATIENT VISIT TRACKING (12 MO.) No inpatient visits to display in this time frame [email or web address]
[2020-12-12] MEDS ORDERED: VIGAMOX3 ML OPTH (15:12)
== END 2020-12-12 15:23 | disposition home or self-care (01) ==
LOC: ED 14:04
DX: H10.33 Unspecified acute conjunctivitis, bilateral (principal); I10 Essential (primary) hypertension
CPT/HCPCS: 99283